=== PATIENT | female | born 2000 | race African-American/Black ===

== ENCOUNTER 2019-10-05 00:54 | Emergency (ER) | payer SELFPAY ==
--- NOTE | 2019-10-05 02:00 | PDOC ---
Attending Attestation - Resident Resident Name: Hermelindo Bejarano - ED Attending Attestation I have performed the following: I have examined & evaluated the patient, The case was reviewed & discussed with the resident, I agree w/resident's findings & plan - HPI HPI: 10/06/19 06:39 see resident hpi 10/06/19 06:39 - Physicial Exam PE: 10/06/19 06:39 see resident exam - Medical Decision Making 10/06/19 06:39 18-year-old female with laceration to the right thigh Wound repaired under sterile technique by emergency department residents DC with wound care instructions
[2019-10-05 02:02] VITALS: BP 114/51; PULSE 75; TEMP 98.4; BMI 33.6
[2019-10-05] MEDS ORDERED: DIPHTH,PERTUSS(ACELL),TET 0.5 ML DISP.SYRIN IM ONE ×2 (02:31→02:37)
[2019-10-05] MEDS ORDERED: IBUPROFEN 600 MG TABLET (FP) PO ONE ×2 (02:31→02:34)
--- NOTE | 2019-10-05 02:36 | PDOC ---
History of Present Illness - General Chief Complaint: Laceration Stated Complaint: LACERATION TO LEG Time Seen by Provider: 10/05/19 01:55 - History of Present Illness Initial Comments: 10/05/19 02:30 18 yo F with h/o depression who p/w right thigh laceration. Patient reports sustaining laceration to right thigh with knife during construction of "school project," 30 minutes [employer]OS[employer]. Patient ambulatory following event. Reports minimal blood loss, and irrigation at home with tap water. No other complaints. Does not recall last tetatnus. Patient denies HIDALGO, vision change, palpitations, cough, wheezing, orthopena, PND , leg swelling/pain, N/V, F,C, CP, SOB, urinary complaints, hematuria, BPR, abdominal pain, diarrhea, constipation, lightheadedness, weakness, sensory changes. PMHx: as noted above ROS: as noted SHx: Denies Etoh, IVDA, tobacco use Allergies: NKDA Past History - Past Medical History Allergies/Adverse Reactions: Allergies Allergy/AdvReac Type Severity Reaction Status Date / Time No Known Allergies Allergy Verified 10/05/19 01:27 Home Medications: Ambulatory Orders No Home Medications 08/27/12 - Immunization History Td Vaccination: Yes - Psycho Social/Smoking Cessation Hx Smoking Status: No Smoking History: Never smoked Number of Cigarettes Smoked Daily: 0 Hx Alcohol Use: No Drug/Substance Use Hx: No Review of Systems - Review of Systems Comments:: 10/05/19 02:34 GENERAL/CONSTITUTIONAL: No fever or chills. No weakness. HEAD, EYES, EARS, NOSE AND THROAT: No change in vision. No ear pain or discharge. No sore throat. CARDIOVASCULAR: No chest pain or shortness of breath RESPIRATORY: No cough, wheezing, or hemoptysis. GASTROINTESTINAL: No nausea, vomiting, diarrhea or constipation. GENITOURINARY: No dysuria, frequency, or change in urination. MUSCULOSKELETAL: No joint or muscle swelling or pain. No neck or back pain. SKIN: + R ant thigh laceration. No rash NEUROLOGIC: No headache, vertigo, loss of consciousness, or change in strength/ sensation. ENDOCRINE: No increased thirst. No abnormal weight change HEMATOLOGIC/LYMPHATIC: No anemia, easy bleeding, or history of blood clots. ALLERGIC/IMMUNOLOGIC: No hives or skin allergy. *Physical Exam - Vital Signs Last Vital Signs Temp Pulse Resp BP Pulse Ox 98.4 F 75 17 114/51 L 97 10/05/19 01:00 10/05/19 01:00 10/05/19 01:00 10/05/19 01:00 10/05/19 01:00 - Physical Exam Comments: 10/05/19 02:34 GENERAL: Awake, alert, and fully oriented, in no acute distress HEAD: No signs of trauma, normocephalic, atraumatic EYES: PERRLA, EOMI, sclera anicteric, conjunctiva clear ENT: Auricles normal inspection, hearing grossly normal, nares patent, oropharynx clear without exudates. Moist mucosa NECK: Normal ROM, supple, no lymphadenopathy, JVD, or masses LUNGS: No distress, speaks full sentences, clear to auscultation bilaterally HEART: Regular rate and rhythm, normal S1 and S2, no murmurs, rubs or gallops, peripheral pulses normal and equal bilaterally. ABDOMEN: Soft, nontender, normoactive bowel sounds. No guarding, no rebound. No masses EXTREMITIES : Normal inspection, Normal range of motion, no edema. No clubbing or cyanosis 5/5 strength throughout all 4 ext. NEUROLOGICAL: Cranial nerves II through XII grossly intact. Normal speech, normal gait, no focal sensorimotor deficits SKIN: + 2-3 cm R ant thigh laceration, with subcutaneous involvement. Absent foreign body, or debris. Warm, Dry, normal turgor, no rashes or lesions noted. 2 + Peripheral DP/PT pulses. Procedures - Laceration/Wound Repair Right Anterior Thigh Wound Length: to 2.5 cm Wound Explored: clean, no foreign body present Wound's Depth, Shape: superficial, linear Irrigated w/ Saline: Yes Anesthesia: 1% Lidocaine Wound Debrided: minimal Wound Repaired With: Sutures Suture Size/Type: 5:0 Number of Sutures: 7 Layer Closure: No Sterile Dressing Applied: Yes Splint Applied: No Sling Applied: No Medical Decision Making - Medical Decision Making 10/05/19 02:36 18 yo F with h/o depression who p/w accidental trauma/ right thigh laceration with knife. Vitals wnl, AF, A&Ox3. Physical exam notable for 2-3 cm Right ant thigh laceration, with subcutaneous involvement. Absent foreign body, or debris. RLE neurovasuclarly inatct. Will perform suture repair, irrigation, pain control, reassess. Ed Course: Wound irrigated with 40 cc NS high pressure, with x 7 5-[address]. Lidocaine 5 cc. Boostrix, Motrin 600 mg Pt. stable for d/c with return precautions. Advised to f/u 7-10 days suture removal and wound check Discharge - Discharge Information Problems reviewed: Yes Clinical Impression/Diagnosis: Laceration of thigh Qualifiers: Encounter type: initial encounter Laterality: right Qualified Code(s): S71.111A - Laceration without foreign body, right thigh, initial encounter Condition: Fair - Admission No - Follow up/Referral - Patient Discharge Instructions Patient Printed Discharge Instructions: DI for Laceration Repair Additional Instructions: Please return to the emergency department with any new or worsening symptoms or concerns. Please return to the emrgency department within 7-10 days for wound check and suture removal. Take Motrin 600 mg every 6 hours as needed for pain. - Post Discharge Activity Work/Back to School Note: Back to Work
[2019-10-05] MEDS ORDERED: ACETAMINOPHEN 325 MG TABLET (FP) ONE (02:41)
== END 2019-10-05 02:45 | disposition home or self-care (01) ==
LOC: JER 00:54
PROC: 3E0234Z Introduction of Serum, Toxoid and Vaccine into Muscle, Percutaneous Approach (ICD-10-PCS; principal; 2019-10-05)
DX: S71.111A Laceration without foreign body, right thigh, initial encounter (principal); X58.XXXA Exposure to other specified factors, initial encounter; Y93.89 Activity, other specified; Y92.89 Other specified places as the place of occurrence of the external cause
CPT/HCPCS: 90715; 99282-25

== ENCOUNTER 2019-10-15 19:09 | Emergency (ER) | payer SELFPAY ==
[2019-10-15 19:20] VITALS: BP 151/86; PULSE 115; TEMP 98.6; BMI 33.6
--- NOTE | 2019-10-15 19:44 | PDOC ---
History of Present Illness - General Chief Complaint: Suture/Staple Removal(Here) Stated Complaint: SUTURE REMOVEL Time Seen by Provider: 10/15/19 19:32 - History of Present Illness Initial Comments: 10/15/19 19:42 18-year-old female presents for suture Past History - Past Medical History Allergies/Adverse Reactions: Allergies Allergy/AdvReac Type Severity Reaction Status Date / Time No Known Allergies Allergy Verified 10/15/19 19:20 Home Medications: Ambulatory Orders No Home Medications 08/27/12 COPD: No - Immunization History Td Vaccination: Yes - Psycho Social/Smoking Cessation Hx Smoking Status: No Smoking History: Current every day smoker Number of Cigarettes Smoked Daily: 0 Information on smoking cessation initiated: No Hx Alcohol Use: No Drug/Substance Use Hx: No Review of Systems - Review of Systems Constitutional: No: Fever *Physical Exam - Vital Signs Last Vital Signs Temp Pulse Resp BP Pulse Ox 98.6 F 115 H 18 151/86 99 10/15/19 19:18 10/15/19 19:18 10/15/19 19:18 10/15/19 19:18 10/15/19 19:18 - Physical Exam 10/15/19 19:42 Wounds on the right side of the forehead and lateral aspect of the right eye clean dry and intact and healing well. 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 Return to the emergency room for further issues. After 48 hours you may gently wash the area with soap and water and leave it open to air. Do not apply any ointment such as bacitracin or Neosporin. Follow-up with your primary care physician in 2 to 3 days for further evaluation and treatment options as well as for a wound check. - Post Discharge Activity
== END 2019-10-15 20:26 | disposition home or self-care (01) ==
LOC: JERFT 19:09
DX: Z48.817 Encounter for surgical aftercare following surgery on the skin and subcutaneous tissue (principal); Z48.02 Encounter for removal of sutures
CPT/HCPCS: 99281-25